=== PATIENT | male | born 1970 | race Caucasian/White ===

== ENCOUNTER 2017-09-13 14:25 | Emergency (ER) | payer SELFPAY ==
[2017-09-13 14:46] VITALS: BP 123/72; PULSE 102; TEMP 98.5; BMI 41.3
--- NOTE | 2017-09-13 15:08 | PDOC ---
History of Present Illness - History of Present Illness Initial Comments: 09/13/17 17:05 The patient is a 47 year old male with no significant PMH who presents for evaluation of left flank pain. The patient reports sudden onset intermittent left sharp flank pain beginning 2 days ago that has now become constant prompting his presentation to the ED today. Throughout this time, he notes less frequency of urination as well, but denies any pain on urination. He also notes some suprapubic abdominal pain as well. He denies fevers, chills, SOB, chest pain, nausea, or vomiting. <Horacio Downing - Last Filed: 09/13/17 17:25> <Baron Almaraz - Last Filed: 09/13/17 19:56> - General Chief Complaint: Pain, Acute Stated Complaint: PAIN Time Seen by Provider: 09/13/17 15:07 Past History - Past Medical History Thyroid Disease: No - Suicide/Smoking/Psychosocial Hx Smoking History: Never smoked Have you smoked in the past 12 months: No Information on smoking cessation initiated: No Hx Alcohol Use: No Drug/Substance Use Hx: No Substance Use Type: None <Horacio Downing - Last Filed: 09/13/17 17:25> <Baron Almaraz - Last Filed: 09/13/17 19:56> - Past Medical History Allergies/Adverse Reactions: Allergies Allergy/AdvReac Type Severity Reaction Status Date / Time No Known Allergies Allergy Verified 09/13/17 14:46 Review of Systems - Review of Systems Comments:: 09/13/17 17:32 Constitutional: No fevers, chills, fatigue, malaise HEENT: No Rhinorrhea, nasal congestion, visual changes Cardiovascular: No chest pain, syncope, palpitations, lightheadedness Respiratory: No Cough, SOB, Hemoptysis, Gastrointestinal: No Abdominal pain, Nausea, Vomiting, Constipation, Diarrhea, Melena Genitourinary: Left flank pain. Decreased frequency. No Dysuria,Urgency, Hesitancy, Hematuria, Musculoskeletal: No Myalgia, arthralgia Skin: No rashes, bruising, pallor Neurologic: No Headache, Dizziness, Numbness, Weakness, or Tingling <Horacio Downing - Last Filed: 09/13/17 17:25> *Physical Exam - Vital Signs Last Vital Signs Temp Pulse Resp BP Pulse Ox 98.5 F 102 H 18 123/72 100 09/13/17 14:43 09/13/17 14:43 09/13/17 14:43 09/13/17 14:43 09/13/17 14:43 - Physical Exam Comments: 09/13/17 17:32 General Appearance: Nourished. No Apparent Distress HEENT: EOMI, RAKESH. No Pharyngeal Erythema, Tonsillar Exudate, Tonsillar Erythema Respiratory/Chest: Lungs Clear, Normal Breath Sounds. No Crackles, Rales, Rhonchi, Wheezing Cardiovascular: Regular Rhythm, Regular Rate. No Murmur, Gallops, Rubs Gastrointestinal/Abdominal: Normal Bowel Sounds, Soft. Mild suprapubic tenderness to palpation. No Guarding, Rebound, Musculoskeletal: Mild left CVA Tenderness. No right CVA tenderness. Extremity: Normal Capillary Refill Integumentary: Normal Color, Dry, Warm Neurologic: Fully Oriented, Alert, Normal Mood/Affect, Normal Response, <Horacio Downing - Last Filed: 09/13/17 17:25> - Vital Signs Last Vital Signs Temp Pulse Resp BP Pulse Ox 98.5 F 102 H 18 123/72 100 09/13/17 14:43 09/13/17 14:43 09/13/17 14:43 09/13/17 14:43 09/13/17 14:43 <Baron Almaraz - Last Filed: 09/13/17 19:56> ED Treatment Course - ADDITIONAL ORDERS Additional order review: Laboratory Results 09/13/17 16:30 Urine Color Yellow Urine Appearance Slcloudy Urine pH 5.0 Urine Protein Negative Urine Glucose (UA) Negative Urine Ketones Negative Urine Blood 1+ H Urine Nitrite Negative Urine Bilirubin Negative Urine Urobilinogen Negative Urine RBC 6 Urine WBC 1 Ur Epithelial Cells Rare Calcium Oxalate Crystal Rare Urine Mucus Rare - Medications Given in the ED: ED Medications Discontinued Medications Generic Name Dose Route Start Last Admin Trade Name Freq PRN Reason Stop Dose Admin Ketorolac Tromethamine 60 mg 09/13/17 16:56 09/13/17 17:05 Toradol Injection - IM 09/13/17 16:57 60 mg ONCE ONE Administration <Baron Almaraz - Last Filed: 09/13/17 19:56> Medical Decision Making - Medical Decision Making 09/13/17 17:34 The patient is a 47 year old male with no significant PMH who presents for evaluation of left flank pain. Differential includes but is not limited to: Nephrolethiasis, UTI, Diverticulitis, colitis, musculoskeletal. Given the patient's flank pain as well as decreased urination, it is likely his symptoms are due to nephrolethiasis. We will obtain a UA to evaluate and obtain a spiral CT to evaluate for other etiologies. We will also treat his pain with toradol and continue to monitor and reassess. <Horacio Downing - Last Filed: 09/13/17 17:25> *DC/Admit/Observation/Transfer <Horacio Downing - Last Filed: 09/13/17 17:25> <Baron Almaraz - Last Filed: 09/13/17 19:56> Diagnosis at time of Disposition: Calculus of left kidney - Discharge Dispostion Disposition: HOME Condition at time of disposition: Stable - Referrals Referrals: Zeus Crump MD [Staff Physician] - - Patient Instructions Printed Discharge Instructions: DI for Kidney Stones Print Language: BHUTANESE
[2017-09-13 16:43] LABS: URINE APPEARANCE SLCLOUDY; URINE BILIRUBIN NEGATIVE (NEGATIVE); URINE BLOOD 1+ (NEGATIVE); URINE COLOR YELLOW; URINE GLUCOSE (UA) NEGATIVE (NEGATIVE); URINE KETONE NEGATIVE (NEGATIVE); URINE NITRITE NEGATIVE (NEGATIVE); URINE PROTEIN NEGATIVE (NEGATIVE); URINE UROBILINOGEN NEGATIVE mg/dL (0.2-1.0)
[2017-09-13] MEDS ORDERED: KETOROLAC TROMETHAMINE 60 MG/2 ML VIAL IM ONE (16:56)
[2017-09-13] MEDS ORDERED: KETOROLAC TROMETHAMINE 60 MG/2 ML VIAL ONE (17:00)
[2017-09-13 17:03] LABS: CALCIUM OXALATE CRYSTALS RARE /hpf (NONE SEEN); URINE MUCUS RARE; URINE RBC 6 /hpf (0-3); URINE WBC 1 /hpf (3-5)
--- NOTE | 2017-09-13 18:06 | PDOC ---
Attending Attestation - Resident Resident Name: SalinaHoracio - ED Attending Attestation I have performed the following: I have examined & evaluated the patient, The case was reviewed & discussed with the resident, I agree w/resident's findings & plan, Exceptions are as noted - HPI HPI: 09/13/17 18:04 47-year-old male presents to the ER with atraumatic left flank pain, and suprapubic abdominal pain for the past 2 days. - Physicial Exam PE: 09/13/17 18:04 Patient is awake and alert, afebrile, hemodynamically stable. nc, atr cta rrr abd: sft, + mild suprapubic tenderness to palpation; no guarding or rebound; mild left CVA tenderness is noted; - Medical Decision Making 09/13/17 18:05 47-year-old male presents with suprapubic abdominal pain and left flank pain for the past 2 days. Patient is afebrile and nontoxic appearing. Differential diagnoses includes UTI versus nephrolithiasis versus pyelonephritis. Will obtain CT of abdomen and pelvis without contrast to rule out nephrolithiasis and hydronephrosis. Will obtain UA. We'll administer IM oral. Will reassess. 09/13/17 19:54 Patient reassessed. Patient is resting comfortably. Patient is tolerating by mouth and is voiding spontaneously. CT of abdomen and pelvis reveals a nonobstructing distal left ureteral stone measuring 3.9 mm, without associated hydronephrosis or perinephric stranding. Urinalysis reveals 6 RBCs per high- power field no evidence of proteinuria. Patient is afebrile. I do not suspect an acute infectious process or renal insufficiency caused by nephrolithiasis at this time. Will discharge with urology follow-up.
[2017-09-13] MEDS ORDERED: IBUPROFEN 400 MG TABLET (FP) PO ONE ×2 (19:57→20:17)
[2017-09-13 20:31] LABS: URINE LEUK ESTERASE Negative (NEGATIVE)
== END 2017-09-13 20:32 | disposition home or self-care (01) ==
LOC: JER 14:25
PROC: 3E0333Z Introduction of Anti-inflammatory into Peripheral Vein, Percutaneous Approach (ICD-10-PCS; principal; 2017-09-13)
DX: N20.0 Calculus of kidney (principal); K80.20 Calculus of gallbladder without cholecystitis without obstruction; E86.0 Dehydration
CPT/HCPCS: 74176; 81003; 81015; 99281-25

== ENCOUNTER 2017-09-14 03:15 | Emergency (ER) | payer SELFPAY ==
[2017-09-14 03:31] VITALS: BP 138/76; PULSE 82; TEMP 97.6; BMI 30.2
[2017-09-14] MEDS ORDERED: TAMSULOSIN HCL 0.4 MG CAP.ER.24H (FP) PO ONE (05:08)
--- NOTE | 2017-09-14 05:08 | PDOC ---
History of Present Illness - General History Source: Patient Exam Limitations: No Limitations - History of Present Illness Initial Comments: 09/14/17 05:24 The patient is a 47 year old male with no significant past medical history who presents to the ED for left sided flank pain. The patient was recently seen in the ED yesterday and was diagnosed with kidney stones and discharged home without a prescription for pain. Patient comes into the ED for recurrent left sided flank pain. He reports vomiting secondary to pain and decreased urinary output. Patient reports taking 400 mg of motrin with no relief of present symptoms. Denies fever or chills. Denies dysuria. Denies diarrhea or abdominal pain. Denies any other symptoms. <Cortney Sahni - Last Filed: 09/14/17 05:24> <Patricia Morales - Last Filed: 09/14/17 20:32> - General Chief Complaint: Pain Stated Complaint: PAIN, KIDNEY STONE Past History <Cortney Sahni - Last Filed: 09/14/17 05:24> - Past Medical History Thyroid Disease: No - Suicide/Smoking/Psychosocial Hx Smoking History: Never smoked Have you smoked in the past 12 months: No Information on smoking cessation initiated: No Hx Alcohol Use: No Drug/Substance Use Hx: No Substance Use Type: None <Patricia Morales - Last Filed: 09/14/17 20:32> - Past Medical History Allergies/Adverse Reactions: Allergies Allergy/AdvReac Type Severity Reaction Status Date / Time No Known Allergies Allergy Verified 09/14/17 03:27 Home Medications: Ambulatory Orders Tamsulosin HCl [Flomax] 0.4 mg PO DAILY #10 cap.er.24h 09/14/17 Review of Systems - Review of Systems Able to Perform ROS?: Yes Comments:: 09/14/17 05:24 CONSTITUTIONAL: No reported: Fever, Chills, Diaphoresis, Generalized Weakness, Malaise, Loss of Appetite HEENT: No reported: Rhinorrhea, Nasal Congestion, Throat Pain, Throat Swelling, Difficulty Swallowing, Mouth Swelling, Ear Pain, Eye Pain, Visual Changes CARDIOVASCULAR: No reported: Chest Pain, Syncope, Palpitations, Irregular Heart Rate, Lightheadedness, Peripheral Edema RESPIRATORY: No reported: Cough, Shortness of Breath, SOB with Exertion, Orthopnea, Wheezing , Stridor, Hemoptysis GASTROINTESTINAL:+ vomiting No reported: Abdominal pain, Abdominal Distension, Diarrhea, Constipation, Melena, Hematochezia GENITOURINARY: + flank pain decreased urinary output No reported: Dysuria, Frequency, Urgency, Hesitancy, Genital Pain MUSCULOSKELETAL: No reported: Myalgia, Arthralgia, Joint Swelling, Back pain, Neck Pain SKIN: No reported: Rash, Itching, Pallor HEMEATOLOGIC/IMMUNOLOGIC: No reported: Easy Bleeding, Easy Bruising, Lymphadenopathy, Frequent infections ENDOCRINE: No reported: Unexplained Weight Gain, Unexplained Weight Loss, Heat Intolerance , Cold Intolerance NEUROLOGIC: No reported: Headache, Focal Weakness, Paresthesias, Vertigo, Lightheadedness, Unsteady Gait, Seizure, Mental Status Changes, Incontinence PSYCHIATRIC: No reported: Anxiety, Depression All Other Systems: Reviewed and Negative <Cortney Sahni - Last Filed: 09/14/17 05:24> *Physical Exam - Vital Signs Last Vital Signs Temp Pulse Resp BP Pulse Ox 97.6 F 82 20 138/76 99 09/14/17 03:27 09/14/17 03:27 09/14/17 03:27 09/14/17 03:27 09/14/17 03:27 - Physical Exam Comments: 09/14/17 05:24 GENERAL: Well developed, well nourished. Awake and alert. No acute distress. HEENT: Normocephalic, atraumatic. PERRLA, EOMI. No conjunctival pallor. Sclera are non- icteric. Moist mucous membranes. Oropharynx is clear. NECK: Supple. Full ROM. No JVD. Carotid pulses 2+ and symmetric, without bruits. No thyromegaly. No lymphadenopathy. CARDIOVASCULAR: Regular rate and rhythm. No murmurs, rubs, or gallops. Distal pulses are 2+ and symmetric. PULMONARY: No evidence of respiratory distress. Lungs clear to auscultation bilaterally. No wheezing, rales or rhonchi. ABDOMINAL: Soft. Non-tender. Non-distended. No rebound or guarding. No organomegaly. Normoactive bowel sounds. MUSCULOSKELETAL: + Mild left flank pain Normal range of motion at all joints. No bony deformities or tenderness. No CVA tenderness. EXTREMITIES: No cyanosis. No clubbing. No edema. No calf tenderness. SKIN: Warm and dry. Normal capillary refill. No rashes. No jaundice. NEUROLOGICAL: Alert, awake, appropriate. Cranial nerves 2-12 intact. No deficits to light touch and temperature in face, upper extremities and lower extremities. No motor deficits in the in face, upper extremities and lower extremities. Normoreflexic in the upper and lower extremities. Normal speech. Toes are down- going bilaterally. Gait is normal without ataxia. PSYCHIATRIC: Cooperative. Good eye contact. Appropriate mood and affect. <Cortney Sahni - Last Filed: 09/14/17 05:24> - Vital Signs Last Vital Signs Temp Pulse Resp BP Pulse Ox 97.6 F 82 20 138/76 99 09/14/17 03:27 09/14/17 03:27 09/14/17 03:27 09/14/17 03:27 09/14/17 03:27 <Patricia Morales - Last Filed: 09/14/17 20:32> Medical Decision Making - Medical Decision Making 09/14/17 05:10 Patient Name: JUDE CADENA THIS IS A PRELIMINARY REPORT FROM [facility] DATE OF SERVICE: 2017-09-13 17:41:52 IMAGES: [id number] EXAM: CT abdomen and pelvis noncontrast HISTORY:Left flank pain COMPARISON: None. FINDINGS: There is a distal left ureteral stone measuring 3.9 mm without associated hydronephrosis, ureterectasis or perinephric stranding. Few small nonobstructing stones in the lower pole of the left kidney. The right kidney is unremarkable Cholelithiasis and sludge in the gallbladder without gallbladder wall thickening or pericholecystic edema to suggest acute cholecystitis The liver is enlarged measuring 22 cm in craniocaudal dimension with fatty changes. Small umbilical hernia containing fat and bilateral inguinal hernias containing fat Normal appendix No intra-abdominal free air or free fluid Mild deformity of the right inferior pubic ramus possibly an old fracture THIS DOCUMENT HAS BEEN ELECTRONICALLY SIGNED 09/14/17 20:28 Pt was here within the last [address] is as above. He was treated in the ER and discharged without hydration, flomax, or analgesia. He was told to take OTC motrin and states that it's not working. Pt states that he is vomiting and has kept nothing down all day. Pt has no dysuria and he has no fever and his UA from earlier demonstrates no infection. He will be hydrated now and he will have analgesics in the ER nd I will rx flomax for him. <Patricia Morales - Last Filed: 09/14/17 20:32> *DC/Admit/Observation/Transfer - Attestations Scribe Attestion: 09/14/17 05:24 Documentation prepared by Cortney Sahni, acting as medical records supervisor for Patricia Morales MD <Cortney Sahni - Last Filed: 09/14/17 05:24> - Discharge Dispostion Admit: No <Patricia Morales - Last Filed: 09/14/17 20:32> Diagnosis at time of Disposition: Kidney stone on left side, Dehydration, Renal colic on left side - Discharge Dispostion Condition at time of disposition: Improved - Prescriptions Prescriptions: Tamsulosin HCl [Flomax] 0.4 mg PO DAILY #10 cap.er.24h - Patient Instructions Printed Discharge Instructions: Kidney Stones -- Adult
[2017-09-14] MEDS ORDERED: KETOROLAC TROMETHAMINE 60 MG/2 ML VIAL IM ONE (05:09)
[2017-09-14] MEDS ORDERED: SODIUM CHLORIDE 0.9% 500 ML INFUS.BAG IV ONE (05:19)
[2017-09-14] MEDS ORDERED: KETOROLAC TROMETHAMINE 30 MG/1 ML VIAL IVPUSH ONE (05:19)
[2017-09-14] MEDS ORDERED: TAMSULOSIN HCL 0.4 MG CAP.ER.24H (FP) ONE (05:37)
[2017-09-14] MEDS ORDERED: KETOROLAC TROMETHAMINE 30 MG/1 ML VIAL ONE (05:37)
== END 2017-09-14 07:06 | disposition home or self-care (01) ==
LOC: JER 03:15
PROC: 3E0333Z Introduction of Anti-inflammatory into Peripheral Vein, Percutaneous Approach (ICD-10-PCS; principal; 2017-09-14)
DX: N20.0 Calculus of kidney (principal)
CPT/HCPCS: 99281-25